=== PATIENT | male | born 1980 | race Hispanic/Latino ===

== ENCOUNTER 2017-08-30 06:14 | Emergency (ER) | payer MEDICAID ==
[2017-08-30 06:55] VITALS: BP 145/90; PULSE 77; RESP 17; TEMP 98.7; O2SAT 95
[2017-08-30] MEDS ORDERED: Sodium Chloride 0.9% 1,000 ML IV STA (07:05)
--- NOTE | 2017-08-30 07:49 | ED PDOC ---
HPI: Head Injury Time Seen by Provider: 08/30/17 07:02 Chief Complaint (Nursing): Substance Abuse Chief Complaint (Provider): head injury History Per: Patient, EMS Injury Occurred (Timing): Just Before Arrival Additional Complaint(s): 36 year old male with medical history of anxiety and depression, presents to the emergency department via EMS for an evaluation of head injury prior to arrival. Unable to obtain further history due to patient's agitation and refusal to cooperate with ED staff. PMD: Evert Moran MD Past Medical History Reviewed: Historical Data, Nursing Documentation, Vital Signs Vital Signs: Last Vital Signs Temp 98.7 F 08/30/17 06:55 Pulse 77 08/30/17 06:55 Resp 17 08/30/17 06:55 BP 145/90 08/30/17 06:55 Pulse Ox 95 08/30/17 06:55 - Medical History PMH: Anxiety, Asthma, Back Problems, Depression Denies: Diabetes, Hepatitis, HIV, HTN, Seizures, Sexually Transmitted Disease - Family History Family History: States: Unknown Family Hx - Immunization History Hx Tetanus Toxoid Vaccination: No Hx Influenza Vaccination: No Hx Pneumococcal Vaccination: No - Home Medications Home Medications: Ambulatory Orders Medication Instructions Recorded Albuterol HFA [Ventolin HFA 90 2 puff IH [id number] #1 puff 08/06/17 mcg/actuation (8 g)] Azithromycin [Zithromax] 250 mg PO DAILY #4 tab 08/06/17 predniSONE [predniSONE Tab] 50 mg PO DAILY #4 tab 08/06/17 - Allergies Allergies/Adverse Reactions: Allergies Allergy/AdvReac Type Severity Reaction Status Date / Time FISH Allergy Verified 08/06/17 13:17 Review of Systems Review Of Systems: ROS cannot be obtained secondary to pt's inabilty to answer questions. Physical Exam - Reviewed Nursing Documentation Reviewed: Yes Vital Signs Reviewed: Yes - Physical Exam Appears: Positive for: No Acute Distress Respiratory: Positive for: Normal Breath Sounds. Negative for: Respiratory Distress Neurologic/Psych: Positive for: Alert (and awake), Gait (steady), Other ( speaking full sentences). Negative for: Aphasia (or slurred speech) - ECG O2 Sat by Pulse Oximetry: 95 (RA) Pulse Ox Interpretation: Normal Medical Decision Making Medical Decision Making: Time: 723 --This patient is choosing to leave against medical advice. The physician has personally explained to the pt that choosing to do so may result in permanent bodily harm or . The physician discussed at great length that without further evaluation and monitoring there may be unforeseen circumstances and/or deterioration causing permanent bodily harm or as a result of their choice. The pt verbalized these risks back to the physician in laymans terms. The pt is alert , oriented, and shows the mental capacity to make clear decisions regarding the pts health care at this time. The pt continues to wish to leave against medical advice. In light of the pts decision to leave AMA, follow-up has been arranged and the pt is aware of the importance of following up as instructed. The pt has been advised that they should return to the ED immediately if they change their mind at any time, or if their condition begins to change or worsen in any way. Scribe Attestation: Documented by Marlyn Talbert, acting as a scribe for Kelley Bee MD. Provider Scribe Attestation: All medical record entries made by the Scribe were at my direction and personally dictated by me. I have reviewed the chart and agree that the record accurately reflects my personal performance of the history, physical exam, medical decision making, and the department course for this patient. I have also personally directed, reviewed, and agree with the discharge instructions and disposition. Review of triage information indicates that patient is a heroin user. He was found on the floor of a bathroom with a needle still in the arm. Patient was transported by EMS to the ER. Shortly after arrival, he woke up and became agitated. He adamantly refused treatment. Although he clearly had blood underneath his bandaged scalp, he refused treatment. He was steady on his feet and speech is clear. He was allowed to be discharge AMA. He refuses to wait to sign his papers. Disposition - Clinical Impression Clinical Impression: Head injury, Substance abuse - Patient ED Disposition Is Patient to be Admitted: No - Disposition Disposition: Against Medical Advice Disposition Time: 07:25 Condition: STABLE Instructions: Polysubstance Abuse Forms: [facility] (Senegalese) - POA Present On Arrival: Falls Or Trauma
== END 2017-08-30 07:27 | disposition left against medical advice (07) ==
LOC: H.ER 06:14
DX: S09.90XA Unspecified injury of head, initial encounter (principal); F19.10 Other psychoactive substance abuse, uncomplicated; Z86.59 Personal history of other mental and behavioral disorders; J45.909 Unspecified asthma, uncomplicated